=== PATIENT | female | born 1960 | race Two or more races ===

== ENCOUNTER 2019-05-09 22:01 | Emergency (ER) | payer OTHER ==
[~2019-05-09] VITALS: Ht 152.4 cm; Wt 59.0 kg
[2019-05-09 22:08] VITALS: BP 139/90
--- NOTE | 2019-05-09 22:08 | NUR ---
ED Nurse Note: HELIO RA 60 from home. C/O dizziness with numbness to hand. Per aramedic, pt has orthostatic bp. 122/70 lying and 92/68 standing. pt is ambulatory. VSS.
--- NOTE | 2019-05-09 22:16 | Emergency Room Report ---
History of Present Illness General Chief Complaint: Dizziness Source: Patient Present Illness HPI Disclaimer: Please note that this report is being documented using DRAGON technology. This can lead to erroneous entry secondary to incorrect interpretation by the dictating instrument. HPI: 58-year-old female with a history of CAD status post 5 vessel CABG 2006, 2 stents 2018, hypertension, hyperlipidemia, anxiety, depression presents to the emergency department for lightheadedness and near syncope. The patient has been feeling ill throughout the day noting intermittent nausea, upper abdominal cramping, intermittent lightheadedness, diaphoresis. Prior to arrival in the emergency department had a profound episode where she nearly syncopized. She noted some pain in the epigastrium that radiated up into the chest and into the neck accompanied with tachycardia, diaphoresis, severe nausea. States this is not a typical presentation of either her anxiety or her prior heart attacks. Her family is recently been sick with a gastroenteritis. She has not yet had any diarrhea and denies dysuria, hematuria, vomiting, fevers, cough, URI symptoms. She does take metoprolol as part of her cardiac medications. Denies drug or alcohol use. Denies vertiginous symptoms. Notes mild headache. She was found orthostatic by EMS who started IV fluids. PMH: Hypertension, hyperlipidemia, CAD, anxiety, depression PSH: 5 vessel CABG, 2 stents Allergies: Codeine, penicillin, sulfa antibiotics Social Hx: Denies drug, tobacco or alcohol abuse Allergies: Coded Allergies: CODEINE (Verified Allergy, Unknown, 05/09/19) PENICILLINS (Verified Allergy, Unknown, 05/09/19) SULFA (SULFONAMIDE ANTIBIOTICS) (Verified Allergy, Unknown, 05/09/19) Patient History Last Menstrual Period: unk Nursing Documentation-PMH Hx Hypertension: Yes Review of Systems All Other Systems: negative except mentioned in HPI Physical Exam Vital Signs Date Time Temp Pulse Resp B/P (MAP) Pulse Ox O2 Delivery O2 Flow Rate FiO2 05/09/19 22:02 97.7 86 16 125/68 (87) 98 Room Air General: Awake and alert, no acute distress HEENT: NC/AT. EOMI. no nystagmus. Moist mucous membranes Neck: Supple, trachea midline Chest Wall: No tenderness, no deformity, midline sternotomy scar is clean dry and intact Cardiovascular: RRR. S1 and S2 normal. No murmur appreciated Resp: Normal work of breathing. No cough, wheezing or crackles appreciated Abdomen: Abdomen is soft, nondistended. Nontender Skin: Intact. No abrasions, laceration or rash over the exposed skin MSK: Normal tone and bulk. Moving all extremities. No obvious deformity. Neuro: Awake and alert. Mentating appropriately. Facial depressions are symmetrical. No nystagmus. Medical Decision Making Diagnostic Impression: Primary Impression: Near syncope Additional Impression: Orthostatic hypotension ER Course This a 58-year-old female who presents for evaluation after a near syncopal episode found to be orthostatic by EMS. Differential includes but is not limited to early gastroenteritis, dehydration, vasovagal episode, viral syndrome , ACS, urinary tract infection. We will start broad metabolic and cardiac work- up including EKG, cardiac enzymes, electrolyte panel, urinalysis. She is chest pain-free, feeling well at present and her symptoms are almost resolved though she does feel fatigued and mild headache. We will start aggressive IV hydration and monitor in the emergency department. Laboratory Tests Test 05/09/19 22:10 05/09/19 23:30 White Blood Count 8.8 K/UL (4.8-10.8) Red Blood Count 5.18 M/UL (4.20-5.40) Hemoglobin 15.9 G/DL (12.0-16.0) Hematocrit 47.4 % (37.0-47.0) H Mean Corpuscular Volume 91 FL (80-99) Mean Corpuscular Hemoglobin 30.7 PG (27.0-31.0) Mean Corpuscular Hemoglobin Concent 33.6 G/DL (32.0-36.0) Red Cell Distribution Width 11.3 % (11.6-14.8) L Platelet Count 164 K/UL (150-450) Mean Platelet Volume 6.9 FL (6.5-10.1) Neutrophils (%) (Auto) % (45.0-75.0) Lymphocytes (%) (Auto) % (20.0-45.0) Monocytes (%) (Auto) % (1.0-10.0) Eosinophils (%) (Auto) % (0.0-3.0) Basophils (%) (Auto) % (0.0-2.0) Differential Total Cells Counted 100 Neutrophils % (Manual) 86 % (45-75) H Lymphocytes % (Manual) 7 % (20-45) L Monocytes % (Manual) 4 % (1-10) Eosinophils % (Manual) 0 % (0-3) Basophils % (Manual) 0 % (0-2) Band Neutrophils 3 % (0-8) Platelet Estimate Adequate Platelet Morphology Normal Red Blood Cell Morphology Normal Sodium Level 142 MMOL/L (136-145) Potassium Level 3.6 MMOL/L (3.5-5.1) Chloride Level 106 MMOL/L (98-107) Carbon Dioxide Level 25 MMOL/L (21-32) Anion Gap 11 mmol/L (5-15) Blood Urea Nitrogen 17 mg/dL (7-18) Creatinine 0.9 MG/DL (0.55-1.30) Estimate Glomerular Filtration Rate > 60 mL/min (>60) Glucose Level 121 MG/DL (74-106) H Calcium Level 9.2 MG/DL (8.5-10.1) Phosphorus Level 3.0 MG/DL (2.5-4.9) Magnesium Level 1.9 MG/DL (1.8-2.4) Total Bilirubin 0.5 MG/DL (0.2-1.0) Aspartate Amino Transferase (AST) 26 U/L (15-37) Alanine Aminotransferase (ALT) 46 U/L (12-78) Alkaline Phosphatase 58 U/L (46-116) Troponin I 0.000 ng/mL (0.000-0.056) Total Protein 7.4 G/DL (6.4-8.2) Albumin 4.2 G/DL (3.4-5.0) Globulin 3.2 g/dL Albumin/Globulin Ratio 1.3 (1.0-2.7) Urine Color Pending Urine Appearance Pending Urine pH Pending Urine Specific [place] Pending Urine Protein Pending Urine Glucose (UA) Pending Urine Ketones Pending Urine Blood Pending Urine Nitrite Pending Urine Bilirubin Pending Urine Urobilinogen Pending Urine Leukocyte Esterase Pending EKG Diagnostic Results EKG Time: 22:25 Rate: normal Rhythm: NSR ST Segments: no acute changes Other Impression Sinus rhythm, normal axis, normal intervals, Q waves in lead III Rhythm Strip Diag. Results Rhythm Strip Time: 22:25 EP Interpretation: yes Rate: 80s Rhythm: NSR, no PVC's, no ectopy Chest X-Ray Diagnostic Results Chest X-Ray Diagnostic Results : Chest X-Ray Ordered: Yes # of Views/Limited/Complete: 1 View Indication: Shortness of Breath EP Interpretation: Yes Interpretation: no consolidation, no effusion, no pneumothorax Impression: No acute disease Electronically Signed by: Electronically signed by Dr. Foster Amaya Reevaluation Time: 00:08 Last Vital Signs Date Time Temp Pulse Resp B/P (MAP) Pulse Ox O2 Delivery O2 Flow Rate FiO2 05/09/19 22:02 97.7 86 16 125/68 (87) 98 Room Air Status: improved Reevaluation Impression Labs have returned within normal limits. Troponin is negative. No significant anemia or electrolyte abnormality. Patient is feeling improved. She may be expensing symptoms from an early gastroenteritis and was treated with GI cocktail and Zofran which improved some of her symptoms. She will be discharged home with PMD follow-up. I encourage her to drink plenty of fluids to avoid dehydration and to discuss her metoprolol doses with her PMD if the symptoms continue. She is to follow-up with her PMD within the week to discuss this emergency department visit. Her family is present at bedside and they understand and agree with this treatment plan. Disposition: HOME, SELF-CARE Condition: Improved Scripts Ondansetron Odt* (ZOFRAN ODT*) 4 Mg Tab.rapdis 4 MG BC EVERY 6 HOURS PRN for Nausea & Vomiting, #20 TAB 0 Refills Prov: Foster Amyaa MD 05/09/19 Foster Amaya MD May 09, 2019 22:15
[2019-05-09 22:25] VITALS: BP_SYST 125; BP_SYST 139; BP_DIAS 90; BP_DIAS 93
--- NOTE | 2019-05-09 22:27 | NUR ---
ED Nurse Note: x ray at bed side
[2019-05-09 22:52] LABS: HEMATOCRIT 47.4 % (37.0-47.0); HEMOGLOBIN 15.9 G/DL (12.0-16.0); MEAN CORPUSCULAR VOLUME 91 FL (80-99); PLATELET COUNT 164 K/UL (150-450); RED BLOOD COUNT 5.18 M/UL (4.20-5.40); RED CELL DISTRIBUTION WIDTH 11.3 % (11.6-14.8); WHITE BLOOD COUNT 8.8 K/UL (4.8-10.8)
[2019-05-09 23:05] LABS: ANION GAP 11 mmol/L (5-15); BLOOD UREA NITROGEN 17 mg/dL (7-18); CALCIUM 9.2 MG/DL (8.5-10.1); CARBON DIOXIDE 25 MMOL/L (21-32); CHLORIDE 106 MMOL/L (98-107); CREATININE 0.9 MG/DL (0.55-1.30); POTASSIUM 3.6 MMOL/L (3.5-5.1); SODIUM 142 MMOL/L (136-145)
[2019-05-09 23:09] LABS: ALANINE AMINOTRANSFERASE 46 U/L (12-78); ALBUMIN 4.2 G/DL (3.4-5.0); ALBUMIN/GLOBULIN RATIO 1.3 (1.0-2.7); ALKALINE PHOSPHATASE 58 U/L (46-116); ASPARTATE AMINO TRANSFERASE 26 U/L (15-37); BILIRUBIN,TOTAL 0.5 MG/DL (0.2-1.0)
[2019-05-09] MEDS ORDERED: METOPROLOL TART25 MG ORAL (23:22)
[2019-05-09] MEDS ORDERED: ASPIR 8181 MG ORAL (23:22)
[2019-05-09] MEDS ORDERED: CRESTOR20 MG ORAL (23:22)
[2019-05-09] MEDS ORDERED: ESTRACE1 MG VAGIN (23:22)
[2019-05-09] MEDS ORDERED: DICLOFENAC SOD2.5 ML SOFTTIS (23:22)
[2019-05-09] MEDS ORDERED: OMEPRAZOLE20 M2 ORAL (23:22)
[2019-05-09] MEDS ORDERED: VALACYCLOVIR500 MG ORAL (23:22)
[2019-05-09] MEDS ORDERED: Dicyclomine HCl 10mg/5ml oral soln ORAL ONE (23:45)
[2019-05-09] MEDS ORDERED: Lidocaine 2% Visc 15ml soln ORAL ONE (23:45)
[2019-05-09] MEDS ORDERED: Mylanta II UD 30ml ORAL ONE (23:45)
[2019-05-09 23:51] LABS: APPEARANCE,URINE SLIGHTLY CLOUDY; BILIRUBIN, URINE NEGATIVE (NEGATIVE); GLUCOSE, URINE (UA) NEGATIVE (NEGATIVE); KETONES,URINE NEGATIVE (NEGATIVE); LEUKOCYTE ESTERASE ,URINE 2+ (NEGATIVE); NITRITE,URINE NEGATIVE (NEGATIVE); PH,URINE 7 (4.5-8.0); PROTEIN,URINE 1+ (NEGATIVE); UROBILINOGEN,URINE NORMAL MG/DL (0.0-1.0)
[2019-05-09] MEDS ORDERED: ONDANSETRON ODT4 MG BC (23:56)
[2019-05-10 00:16] LABS: COLOR,URINE YELLOW
[2019-05-10 00:35] VITALS: BP 128/89
--- NOTE | 2019-05-10 00:35 | NUR ---
ER DISCHARGE NOTE: Patient is cleared to be discharged per ERMD, pt is aox4, on room air, with stable vital signs. pt was given dc and prescription instructions, pt was able to verbalize understanding, pt id band and iv site removed without complications. pt is able to ambulate with steady gait. pt took all belongings.
--- NOTE | 2019-05-10 11:16 | Diagnostic Imaging Report ---
Indication: Dyspnea Comparison: None A single view chest radiograph was obtained. Findings: Pulmonary vascular congestion suspected with low lung volumes and borderline cardiomegaly. Sternotomy noted. Bones are osteopenic. IMPRESSION: Suspected mild CHF. Correlate clinically
== END 2019-05-10 00:35 | disposition home or self-care (01) ==
LOC: EDBD 22:01 → EMR 23:52
DX: I95.1 Orthostatic hypotension (principal); I10 Essential (primary) hypertension; Z88.6 Allergy status to analgesic agent; Z88.0 Allergy status to penicillin; Z88.2 Allergy status to sulfonamides; E78.5 Hyperlipidemia, unspecified; I25.10 Atherosclerotic heart disease of native coronary artery without angina pectoris; F41.9 Anxiety disorder, unspecified; F32.9 Major depressive disorder, single episode, unspecified; Z95.1 Presence of aortocoronary bypass graft; Z95.5 Presence of coronary angioplasty implant and graft
CPT/HCPCS: 36415; 71045; 80053; 81003; 83735; 84100; 84484; 85007; 85025; 87086; 93005; 96361; 96374; 99284; J2405